=== PATIENT | male | born 1985 | race African-American/Black ===

== ENCOUNTER 2017-04-17 08:44 | Emergency (ER) | payer SELFPAY ==
[2017-04-17 08:49] VITALS: BP 151/89; PULSE 88; TEMP 98.4; BMI 43.1
--- NOTE | 2017-04-17 09:20 | PDOC ---
History of Present Illness - General Chief Complaint: Urinary Problem Stated Complaint: trouble urinating Time Seen by Provider: 04/17/17 09:20 - History of Present Illness Initial Comments: 04/17/17 09:29 Chief complaint: Dysuria History of present illness: Dysuria and decreased urinary output since last night. Review of systems: No discharge, rash. , monogamous, no other recent sexual contacts, with no symptoms. No fever/chills, back pain, abdominal pain, nausea, vomiting, diarrhea, chest pain or shortness of breath Past medical history: Similar episode one year ago, told he had UTI, treated with antibiotics, symptoms resolved. Borderline diabetes. Otherwise negative Social/family history: As above. Otherwise negative Physical exam: Alert and oriented well-developed well-nourished no acute distress cooperative Afebrile, vital signs normal HEENT clear Neck supple without bruit mass or nodes Chest clear CV regular without murmur rub or gallop Abdomen benign. Specifically, no tenderness to palpation over the bladder or pelvis : Uncircumcised, no urethral discharge, no lesions. Testes descended bilaterally, no masses or tenderness. No hernias Skin clear, no rash, adequate turgor and wet mucous membranes Impression: UTI versus STD Plan: Urinalysis, GC/Chlamydia, urine culture, and further treatment depending on results. Past History - Past Medical History Allergies/Adverse Reactions: Allergies Allergy/AdvReac Type Severity Reaction Status Date / Time No Known Allergies Allergy Verified 04/17/17 08:45 Home Medications: Ambulatory Orders No Home Medications 0 dose .ROUTE UTDICT 07/16/12 Doxycycline Hyclate [Vibratab -] 100 mg PO BID #14 tablet 04/17/17 COPD: No - Suicide/Smoking/Psychosocial Hx Smoking Status: No Smoking History: Never smoked Number of Cigarettes Smoked Daily: 0 Hx Alcohol Use: Yes Drug/Substance Use Hx: Yes Substance Use Type: Alcohol, Marijuana *Physical Exam - Vital Signs Last Vital Signs Temp Pulse Resp BP Pulse Ox 98.4 F 88 18 151/89 99 04/17/17 08:47 04/17/17 08:47 04/17/17 08:47 04/17/17 08:47 04/17/17 08:47 *DC/Admit/Observation/Transfer Diagnosis at time of Disposition: Urethritis - Discharge Dispostion Disposition: HOME Condition at time of disposition: Stable Admit: No - Prescriptions Prescriptions: Doxycycline Hyclate [Vibratab -] 100 mg PO BID #14 tablet - Referrals Referrals: Corey Dorsey MD [Staff Physician] - 1 week - Patient Instructions Printed Discharge Instructions: DI for Urethritis Additional Instructions: Preliminary's tests suggest that this appears to be inflammation of the urethra , otherwise called urethritis. This is most often due to sexually transmitted disease. It will take 2-3 days for cultures to be ready, which should show more clearly the cause. In the meantime, it is best to treat you now for the common germs that usually cause these symptoms. Your sexual partners should be examined and tested as well because they may be infected similarly. If symptoms persist see a urologist for further evaluation and treatment. No sexual intercourse for at least 1 week until he finished the antibiotics. - Post Discharge Activity
[2017-04-17 09:43] LABS: PH,URINE 5.5 (4.5-8); URINE APPEARANCE Clear; URINE BILIRUBIN Negative (NEGATIVE); URINE GLUCOSE (UA) Negative (NEGATIVE); URINE KETONE Negative (NEGATIVE); URINE NITRITE Negative (NEGATIVE); URINE UROBILINOGEN 0.2 (0.2-1.0)
[2017-04-17 09:44] LABS: URINE BLOOD Trace-intact (NEGATIVE); URINE COLOR YELLOW; URINE PROTEIN 1+ (NEGATIVE)
[2017-04-17 10:00] LABS: URINE BACTERIA FEW /hpf (NEGATIVE); URINE WBC 0-2 (0-2)
== END 2017-04-17 10:25 | disposition home or self-care (01) ==
LOC: FER 08:44
DX: N34.2 Other urethritis (principal)
CPT/HCPCS: 36415; 81003; 81015; 87086; 87491; 87591; 99282-25

== ENCOUNTER 2017-08-06 10:54 | Emergency (ER) | payer OTHER ==
[2017-08-06 11:18] VITALS: TEMP 97.8; BMI 42.8
[2017-08-06 11:27] VITALS: BP 142/85; PULSE 82
--- NOTE | 2017-08-06 11:27 | PDOC ---
Attending Attestation - Resident Resident Name: Daryl Reich - ED Attending Attestation I have performed the following: I have examined & evaluated the patient, The case was reviewed & discussed with the resident, I agree w/resident's findings & plan, Exceptions are as noted - HPI HPI: 08/06/17 11:47 32-year-old male with a medical history of eczema presents to the emergency Department with 1 month of bilateral ear itching. Patient presents today as he was unable to get an appointment with his primary care doctor. Patient has not tried any treatments for his years. He reports he is been removing the collar and off con swabs and using that to scratches years. Denies any fevers, ear discharge. He also reports an itchy scalp and some flaking of the scalp as well. Denies any hearing loss. Reports he has been told he is prediabetic, but has never been diagnosed with diabetes. Denies chest pain, shortness of breath, headaches, weakness, abdominal pain - Physicial Exam PE: 08/06/17 11:49 GENERAL: Awake, alert, and fully oriented, in no acute distress HEAD: No signs of trauma EYES: PERRLA, EOMI, sclera anicteric, conjunctiva clear ENT: mild erythema in ext ear canal as well as ear with some flaking b/l, no discharge. TM clear with good light reflex. No fullness or effusion. Hearing grossly normal, nares patent, oropharynx clear without exudates. Moist mucosa NECK: Normal ROM, supple, no lymphadenopathy, JVD, or masses LUNGS: Breath sounds equal, clear to auscultation bilaterally. No wheezes, and no crackles HEART: Regular rate and rhythm, normal S1 and S2, no murmurs, rubs or gallops ABDOMEN: Soft, nontender, normoactive bowel sounds. No guarding, no rebound. No masses EXTREMITIES: Normal range of motion, no edema. No clubbing or cyanosis. No cords, erythema, or tenderness NEUROLOGICAL: Normal speech, cranial nerves intact, negative pronator drift, 5/ 5 strength in all 4 extremities, normal sensation to light touch in all 4 extremities, normal cerebellar exam, normal gait, normal reflexes and tone SKIN: Warm, Dry, normal turgor, no rashes or lesions noted. - Medical Decision Making 08/06/17 11:50 32yo M presents with likely seborrheic dermatitis. Pt advised to no longer traumatize ears with any foreign objects as this will expose him to infx. Will prescribe Fluocinonide otic drops and refer to ENT within 1 week. I discussed the physical exam findings, ancillary test results and final diagnoses with the patient. I answered all of the patient's questions. The patient was satisfied with the care received and felt comfortable with the discharge plan and treatment plan. The patient will call their primary care physician within 24 hours to arrange follow-up and will return to the Emergency Department with any new, persistent or worsening symptoms.
--- NOTE | 2017-08-06 11:29 | PDOC ---
History of Present Illness - General Chief Complaint: Ear Problem Stated Complaint: ITCHING BOTH EARS Time Seen by Provider: 08/06/17 11:02 History Source: Patient Exam Limitations: No Limitations - History of Present Illness Initial Comments: 08/06/17 11:23 32m with past of seasonal allergy, mild asthma and borderline diabetes presents with itchiness in the ear canals as well as on the scalp. Uses q-tips frequently , sometimes removes the cotton at the end to scratch and relieve the itchiness. States the his has been itching as well. No recent illnesses or sick contacts. Past History - Past Medical History Allergies/Adverse Reactions: Allergies Allergy/AdvReac Type Severity Reaction Status Date / Time No Known Allergies Allergy Verified 08/06/17 10:56 Home Medications: Ambulatory Orders No Home Medications 0 dose .ROUTE UTDICT 07/16/12 Fluocinonide 0.05% Top Soln [Lidex 0.05% topical solution] 1 drop AU BID #60 ml 08/06/17 Asthma: Yes COPD: No Diabetes: Yes (BORDERLINE) HTN: Yes - Suicide/Smoking/Psychosocial Hx Smoking Status: No Smoking History: Never smoked Number of Cigarettes Smoked Daily: 0 Information on smoking cessation initiated: No Hx Alcohol Use: Yes (OCCASIONALLY) Drug/Substance Use Hx: No Substance Use Type: Marijuana Review of Systems - Review of Systems Able to Perform ROS?: Yes Is the patient limited Divehi proficient: No Constitutional: No: Symptoms Reported HEENTM: Yes: See HPI Respiratory: No: Symptoms reported Cardiac (ROS): No: Symptoms Reported ABD/GI: No: Symptoms Reported Hematologic/Lymphatic: No: Swollen Glands All Other Systems: Reviewed and Negative *Physical Exam - Vital Signs Last Vital Signs Temp Pulse Resp BP Pulse Ox 97.8 F 74 18 144/105 99 08/06/17 10:55 08/06/17 10:55 08/06/17 10:55 08/06/17 10:55 08/06/17 10:55 - Physical Exam General Appearance: Yes: Nourished, Appropriately Dressed. No: Apparent Distress HEENT: positive: EOMI, NATALIE, Normal ENT Inspection, Other (No trauma to the auditory canals). negative: Sinus Tenderness, TM Erythema, Lesions, Vargas Respiratory/Chest: positive: Lungs Clear, Normal Breath Sounds. negative: Chest Tender, Respiratory Distress Cardiovascular: positive: Regular Rhythm, Regular Rate, S1, S2 Gastrointestinal/Abdominal: positive: Normal Bowel Sounds, Flat, Soft. negative : Tender Musculoskeletal: positive: Normal Inspection Neurologic: positive: Fully Oriented, Alert, Normal Mood/Affect Medical Decision Making - Medical Decision Making 08/06/17 11:30 32m with itchy ear canals. Low suspicion for otitis media or externa due absence of pain, fever, or abnormal tympanic membrane.. No canal trauma, erythema or swelling. Will prescribe flucinonide drops for relief of itchiness in the ear and send for ENT referral. 08/06/17 11:31 *DC/Admit/Observation/Transfer Diagnosis at time of Disposition: Unspecified pruritic disorder - Discharge Dispostion Disposition: HOME Condition at time of disposition: Stable - Prescriptions Prescriptions: Fluocinonide 0.05% Top Soln [Lidex 0.05% topical solution] 1 drop AU BID #60 ml - Referrals Referrals: Ky Doyle MD [Staff Physician] - - Patient Instructions Printed Discharge Instructions: How to Instill Ear Drops Additional Instructions: Follow up with Dr. Doyle from ENT within 1 week. Call today for an appointment. Take the ear drops as prescribed. Do not use cotton swabs or other objects to scratch your ears so as not to cause trauma or infection. Return to the emergency department if you have any new, worsening, or concerning symptoms. - Post Discharge Activity
== END 2017-08-06 11:35 | disposition home or self-care (01) ==
LOC: FER 10:54
DX: L29.9 Pruritus, unspecified (principal); J45.909 Unspecified asthma, uncomplicated; R73.03 Prediabetes; I10 Essential (primary) hypertension
CPT/HCPCS: 99281-25

== ENCOUNTER 2017-09-21 09:05 | Emergency (ER) | payer OTHER ==
[2017-09-21 09:29] VITALS: BP 156/75; PULSE 82; TEMP 98.5; BMI 41.5
[2017-09-21] MEDS ORDERED: NAPROXEN 375 MG TABLET (FP) PO ONE (09:41)
--- NOTE | 2017-09-21 09:47 | PDOC ---
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 He was feeling well until a few days ago when he developed some scratchy sore throat with mild discomfort on swallowing. He also has a mild diffuse headache for the last 3 days. He took an analgesic with resolution of the headache, but it came back again later. There is no fever or chills. There is no neck stiffness. There is no photophobia. There is no change in cognition. The sore throat is mild with some discomfort on swallowing. There is no neck swelling or pain. There is no cough. There is no nausea or vomiting. Patient also has chronic itchy ears, has use drops in the past, now having itchiness in both ears again. REVIEW OF SYSTEMS: GENERAL/CONSTITUTIONAL: No fever or chills. No weakness. No weight change. HEAD, EYES, EARS, NOSE AND THROAT: Positive sore throat. Positive dry itchy ears. CARDIOVASCULAR: No chest pain or shortness of breath. RESPIRATORY: No cough, wheezing, or hemoptysis. GASTROINTESTINAL: No nausea, vomiting, diarrhea or constipation. No rectal bleeding. GENITOURINARY: No dysuria, frequency, or change in urination. MUSCULOSKELETAL: No joint or muscle swelling or pain. No neck or back pain. SKIN AND BREASTS: No rash or easy bruising. NEUROLOGIC: Positive headache. No vertigo, no weakness, no syncope. PSYCHIATRIC: No depression or anxiety. ENDOCRINE: No increased thirst. No abnormal weight change. HEMATOLOGIC/LYMPHATIC: No anemia, easy bleeding, or history of blood clots. ALLERGIC/IMMUNOLOGIC: No hives or skin allergy. No latex allergy. Past History - Past Medical History Allergies/Adverse Reactions: Allergies Allergy/AdvReac Type Severity Reaction Status Date / Time No Known Allergies Allergy Verified 09/21/17 09:09 Home Medications: Ambulatory Orders Ciprofloxacin HCl/Dexameth [Ciprodex Otic Suspension] 2 drop AU BID #1 bottle 06 /09/18 Naproxen [Naprosyn -] 375 mg PO BID PRN #20 tablet 09/21/17 Asthma: Yes COPD: No Diabetes: Yes (BORDERLINE) HTN: Yes - Suicide/Smoking/Psychosocial Hx Smoking Status: No Smoking History: Never smoked Have you smoked in the past 12 months: No Number of Cigarettes Smoked Daily: 0 Hx Alcohol Use: (occasional) Drug/Substance Use Hx: No Substance Use Type: Marijuana *Physical Exam - Vital Signs Last Vital Signs Temp Pulse Resp BP Pulse Ox 98.5 F 82 18 156/75 100 09/21/17 09:05 09/21/17 09:05 09/21/17 09:05 09/21/17 09:05 09/21/17 09:05 - Physical Exam Comments: 09/21/17 09:45 GENERAL: The patient is awake, alert, and fully oriented, in no acute distress. HEAD: Normal with no signs of trauma. EYES: Pupils equal, round and reactive to light, extraocular movements intact, sclera anicteric, conjunctiva clear. ENT: Ears with dry flaky skin in the canals, no inflammation of the tympanic membranes, nares patent, oropharynx with mild erythema on the right side, no exudates. Moist mucous membranes. NECK: Normal range of motion, supple without lymphadenopathy, JVD, or masses. No meningismus. LUNGS: Breath sounds equal, clear to auscultation bilaterally. No wheezes, and no crackles. HEART: Regular rate and rhythm, normal S1 and S2 without murmur, rub or gallop. ABDOMEN: Soft, nontender, normoactive bowel sounds. No guarding, no rebound. No masses. EXTREMITIES: Normal range of motion, no edema. No clubbing or cyanosis. No cords, erythema, or tenderness. NEUROLOGICAL: Cranial nerves II through XII grossly intact. Normal speech, normal gait. PSYCH: Normal mood, normal affect. SKIN: Warm, Dry, normal turgor, no rashes or lesions noted. Medical Decision Making - Medical Decision Making 09/21/17 09:46 32-year-old man with 2 sets of complaints. His first complaint is 3 days of mild sore throat with diffuse headache, mild. The examination is notable for some mild erythema in the right posterior pharynx without exudates. There are no signs of meningitis. There is no fever and no neck stiffness. These findings are consistent with a mild viral pharyngitis associated with headache. Patient will be treated with Naprosyn, rest, and fluids. The other complaint is chronic dry itchy ears. He has a previous history of dermatitis and external otitis. On examination there is dry flaky skin in the ear canals without acute signs of infection. Patient will be treated with Ciprodex drops. *DC/Admit/Observation/Transfer Diagnosis at time of Disposition: Acute viral pharyngitis External otitis Qualifiers: Otitis externa type: unspecified type Chronicity: chronic Laterality: bilateral Qualified Code(s): H60.63 - Unspecified chronic otitis externa, bilateral - Discharge Dispostion Disposition: HOME Condition at time of disposition: Stable Decision to Admit order: No - Prescriptions Prescriptions: Ciprofloxacin HCl/Dexameth [Ciprodex Otic Suspension] 2 drop AU BID #1 bottle Naproxen [Naprosyn -] 375 mg PO BID PRN #20 tablet PRN Reason: Headache - Referrals Referrals: Claudy Perry MD [Staff Physician] - - Patient Instructions Printed Discharge Instructions: DI for Viral Pharyngitis, DI for Otitis Externa Additional Instructions: Today you were evaluated for itchy ears, headache, and sore throat. The headache and sore throat are from a viral infection in your throat. Take Naprosyn 375 mg twice a day to relieve the sore throat and headache. Drink plenty of fluids and get extra rest. The itchy ears are caused by dermatitis in the ear canals. Use Ciprodex drops twice a day to both ears to help relieve the symptoms. Follow-up with Dr. Villa, primary physician. Call Saturday to schedule an appointment. - Post Discharge Activity
[2017-09-21] MEDS ORDERED: HEMOQUE TEST 1 EACH EACH ONE (09:55)
[2017-09-21] MEDS ORDERED: NAPROXEN 375 MG TABLET (FP) ONE (09:56)
== END 2017-09-21 10:05 | disposition home or self-care (01) ==
LOC: FER 09:05
DX: J02.8 Acute pharyngitis due to other specified organisms (principal); B97.89 Other viral agents as the cause of diseases classified elsewhere
CPT/HCPCS: 82962; 99282-25

== ENCOUNTER 2018-02-19 19:30 | Emergency (ER) | payer OTHER ==
--- NOTE | 2018-02-19 19:36 | PDOC ---
History of Present Illness - General History Source: Patient Exam Limitations: No Limitations - History of Present Illness Initial Comments: 02/19/18 19:41 The patient is a 33 year old male, with a significant past medical history of mild asthma and borderline diabetes, who presents to the emergency department with a match stuck in his right ear. He states he had an itch which he scratched with a match, but the match broke inside his ear. He denies any pain to the right ear. He denies auditory changes. The patient denies chest pain, shortness of breath, headache and dizziness. Allergies: NKDA <Jade Sterling - Last Filed: 02/19/18 19:41> <Chu Mendosa - Last Filed: 02/20/18 04:17> - General Chief Complaint: Foreign Body (FB) Stated Complaint: R EAR FB Time Seen by Provider: 02/19/18 19:35 Past History <Jade Sterling - Last Filed: 02/19/18 19:41> - Past Medical History Asthma: Yes COPD: No Diabetes: Yes (BORDERLINE) HTN: Yes - Suicide/Smoking/Psychosocial Hx Smoking Status: No Smoking History: Never smoked Have you smoked in the past 12 months: No Number of Cigarettes Smoked Daily: 0 Hx Alcohol Use: Yes (OCCASIONALLY) Drug/Substance Use Hx: No Substance Use Type: Marijuana <Chu Mendosa - Last Filed: 02/20/18 04:17> - Past Medical History Allergies/Adverse Reactions: Allergies Allergy/AdvReac Type Severity Reaction Status Date / Time No Known Allergies Allergy Verified 09/21/17 09:09 Home Medications: Ambulatory Orders Atorvastatin Ca [Lipitor] 20 mg PO HS 02/19/18 Metformin HCl [Glucophage] 1,000 mg PO BID 02/19/18 Neomycin/Polymyxn/Hc [Cortisporin Otic Solution -] 1 drop AU QID #40 drops 02/19 Review of Systems - Review of Systems Able to Perform ROS?: Yes Comments:: 02/19/18 19:42 CONSTITUTIONAL: Absent: fever, chills, diaphoresis, generalized weakness, malaise, loss of appetite HEENT: (+) FB in right ear. Absent: rhinorrhea, nasal congestion, throat pain, throat swelling, difficulty swallowing, mouth swelling, ear pain, eye pain, visual Changes CARDIOVASCULAR: Absent: chest pain, syncope, palpitations, irregular heart rate, lightheadedness , peripheral edema RESPIRATORY: Absent: cough, shortness of breath, dyspnea with exertion, orthopnea, wheezing, stridor, hemoptysis GASTROINTESTINAL: Absent: abdominal pain, abdominal distension, nausea, vomiting, diarrhea, constipation, melena, hematochezia GENITOURINARY: Absent: dysuria, frequency, urgency, hesitancy, hematuria, flank pain, genital pain MUSCULOSKELETAL: Absent: myalgia, arthralgia, joint swelling SKIN: Absent: rash, itching, pallor HEMATOLOGIC/IMMUNOLOGIC: Absent: easy bleeding, easy bruising, lymphadenopathy, frequent infections ENDOCRINE: Absent: unexplained weight gain, unexplained weight loss, heat intolerance, cold intolerance NEUROLOGIC: Absent: headache, focal weakness or paresthesias, dizziness, unsteady gait, seizure, mental status changes, bladder or bowel incontinence PSYCHIATRIC: Absent: anxiety, depression, suicidal or homicidal ideation, hallucinations. <Jade Sterling - Last Filed: 02/19/18 19:41> *Physical Exam - Vital Signs Last Vital Signs Temp Pulse Resp BP Pulse Ox 98.1 F 88 14 164/74 100 02/19/18 19:35 02/19/18 19:35 02/19/18 19:35 02/19/18 19:35 02/19/18 19:35 - Physical Exam Comments: 02/19/18 19:42 GENERAL: Well developed, well nourished. Awake and alert. No acute distress. HEENT: (+) Stick of wood in right ear. Flakes and erythema in bilateral auditory canals. Bilateral TMs are intact without injury. Normocephalic, atraumatic. PERRLA, EOMI. No conjunctival pallor. Sclera are non-icteric. Moist mucous membranes. Oropharynx is clear. NECK: Supple. Full ROM. No JVD. Carotid pulses 2+ and symmetric, without bruits. No thyromegaly. No lymphadenopathy. CARDIOVASCULAR: Regular rate and rhythm. No murmurs, rubs, or gallops. Distal pulses are 2+ and symmetric. bowel sounds. MUSCULOSKELETAL Normal range of motion at all joints. No bony deformities or tenderness. EXTREMITIES: No cyanosis. No clubbing. No edema. No calf tenderness. SKIN: Warm and dry. Normal capillary refill. No rashes. No jaundice. NEUROLOGICAL: Alert, awake, appropriate. Cranial nerves 2-12 intact. No motor deficits in the in face, upper extremities and lower extremities. Normoreflexic in the upper and lower extremities. Normal speech. Gait is normal without ataxia. PSYCHIATRIC: Cooperative. Good eye contact. Appropriate mood and affect. <Jade Sterling - Last Filed: 02/19/18 19:41> Medical Decision Making - Medical Decision Making 02/20/18 04:16 fb removed oe cortisporin ENT fu <Chu Mendosa - Last Filed: 02/20/18 04:17> *DC/Admit/Observation/Transfer - Attestations Scribe Attestion: 02/19/18 19:42 Documentation prepared by Jade Sterling, acting as medical records assistant for Chu Mendosa MD <Jade Sterling - Last Filed: 02/19/18 19:41> <Chu Mendosa - Last Filed: 02/20/18 04:17> Diagnosis at time of Disposition: Otitis externa Qualifiers: Otitis externa type: unspecified type Chronicity: acute Laterality: bilateral Qualified Code(s): H60.503 - Unspecified acute noninfective otitis externa, bilateral - Discharge Dispostion Disposition: HOME Condition at time of disposition: Good - Prescriptions Prescriptions: Neomycin/Polymyxn/Hc [Cortisporin Otic Solution -] 1 drop AU QID #40 drops - Referrals Referrals: Ky Doyle MD [Staff Physician] - Call tomorrow - Patient Instructions Printed Discharge Instructions: DI for Otitis Externa
[2018-02-19 19:37] VITALS: BP 164/74; PULSE 88; TEMP 98.1; BMI 42.0
== END 2018-02-19 20:11 | disposition home or self-care (01) ==
LOC: FER 19:30
DX: H60.503 Unspecified acute noninfective otitis externa, bilateral (principal); X58.XXXA Exposure to other specified factors, initial encounter; Y93.89 Activity, other specified; Y92.9 Unspecified place or not applicable; R73.03 Prediabetes; J45.909 Unspecified asthma, uncomplicated
CPT/HCPCS: 99282-25

== ENCOUNTER 2018-08-06 12:47 | Day surgery (SDC) | payer OTHER ==
[2018-08-06 13:15] VITALS: BMI 42.5
[2018-08-06] MEDS ORDERED: PROMETHAZINE HCL 25 MG/1 ML VIAL IVPUSH PRN (15:21)
[2018-08-06] MEDS ORDERED: ONDANSETRON 4 MG/2 ML VIAL IVPUSH PRN (15:21)
[2018-08-06] MEDS ORDERED: oxyCODONE HCL 5 MG TABLET PO PRN (15:21)
[2018-08-06] MEDS ORDERED: LACTATED RINGERS SOLUTION 1,000 ML IV SCH (15:30)
[2018-08-06] MEDS ORDERED: MIDAZOLAM HCL 2 MG/2 ML SINGLE DOSE VIAL ONE (15:45)
[2018-08-06] MEDS ORDERED: PROPOFOL 20 ML ONE ×2 (15:45)
[2018-08-06] MEDS ORDERED: ceFAZolin SODIUM 1 GM VIAL IVPB ONE (15:45)
[2018-08-06] MEDS: LABETALOL HCL 5 MG/1 ML (100MG/20 ML VIAL) IVPUSH ONE ×3 (16:25→16:45)
[2018-08-06] MEDS ORDERED: LABETALOL HCL 5 MG/1 ML (100MG/20 ML VIAL) ONE (16:27)
--- NOTE | 2018-08-06 16:27 | OP ---
Operative Note - Note: Operative Date: 08/06/18 Pre-Operative Diagnosis: Urethral Stricture Operation: Cysto Internal Urethrotomy and Landeros cath Findings: Severe urethral stricture 2 cm long in the mem urethra to posterior urethra Post-Operative Diagnosis: Same as Pre-op Surgeon: Eva Santacruz Anesthesia: General Operative Report Dictated: Yes
--- NOTE | 2018-08-06 17:04 | OP ---
DATE OF OPERATION: 08/06/2018 SURGEON: Eva Santacruz M.D. ANESTHESIA: General. PREOPERATIVE DIAGNOSIS: Membranous and posterior urethral stricture. POSTOPERATIVE DIAGNOSIS: Membranous and posterior urethral stricture. PROCEDURE PERFORMED: Cystoscopy, visual urethrotomy and Landeros catheterization. FINDINGS: A 2-cm long stricture noted in the posterior urethra, almost extending onto the membranous urethra. Bladder essentially normal. Both ureteral orifices normally located, with clear efflux. DESCRIPTION OF PROCEDURE: With the patient in the lithotomy position, under anesthesia, was prepped and draped in the usual manner. Using Vanduser urethrotome, cystoscopy was performed. Stricture was identified. Then with the cold knife, the stricture was incised at the 12 o'clock position. As the incision was carried out, the scope was advanced, finally breaking through the stricture to reach into the bladder. The bladder was inspected and the findings were as noted above. Then the instruments were withdrawn. An 18 Landeros was left indwelling. The patient tolerated the procedure well and left the operating room in satisfactory condition. Robbin PRICE/[id number]
[2018-08-06] MEDS ORDERED: METOPROLOL TARTRATE 5 MG/5 ML VIAL IVPUSH ONE (17:28)
[2018-08-06 18:42] VITALS: TEMP 98.3
[2018-08-06 19:59] VITALS: BP 141/94; PULSE 86
== END 2018-08-06 19:52 | disposition home or self-care (01) ==
LOC: JASU-SURG 12:47
PROVIDERS: ATTEND Urology
PROC: 0TND8ZZ Release Urethra, Via Natural or Artificial Opening Endoscopic (ICD-10-PCS; principal; 2018-08-06 14:00)
DX: N35.813 Other membranous urethral stricture, male (principal)
CPT/HCPCS: 82962; 94760